=== PATIENT | female | born 1940 | race Hispanic/Latino ===

== ENCOUNTER 2017-09-22 23:12 | Inpatient (IN) | payer MEDICARE, MEDICAID ==
[2017-09-22 23:51] LABS: Hemoglobin 14.7 g/dL (12.0-16.0); Mean Corpuscular HGB CONC 34.4 g/dL (32.0-36.0); Mean Corpuscular Hemoglobin 34.3 pg (27.0-31.0); Mean Corpuscular Volume 99.8 fl (81.0-99.0); RBC Distribution Width 11.1 % (11.5-14.5); Red Blood Cell (RBC) Count 4.29 mill/uL (4.20-5.40); White Blood Cell (WBC) Count 5.1 thou/uL (4.8-10.8)
[2017-09-23 00:09] LABS: ALT (SGPT) 68 U/L (8-55); AST (SGOT) 108 U/L (5-34); Albumin 3.8 g/dL (3.4-4.8); Alkaline Phosphatase 143 U/L (40-150); Anion Gap 11 mmol/L (10-20); BUN (Urea Nitrogen) 14 mg/dL (9.8-20.1); Bilirubin, Total 0.8 mg/dL (0.2-1.2); Calc. Creatinine Clearance 0 mL/min (70-130); Calcium 9.1 mg/dL (7.8-10.44); Carbon Dioxide 24 mmol/L (23-31); Chloride 99 mmol/L (98-107); Estimated GFR-MDRD 63; Globulin 3.5 g/dL (2.4-3.5); Glucose 249 mg/dL (83-110); Protein, Total 7.3 g/dL (6.0-8.3); Sodium 130 mmol/L (136-145)
[2017-09-23 00:13] LABS: Bilirubin Negative (Negative); Blood, Urine Moderate (Negative); Clarity TURBID (Clear); Glucose, Urine (Dipstick) 500 mg/dL (Negative); Leukocyte Large (Negative); Nitrite Negative (Negative); Protein, Urine (Dipstick) 100 mg/dL (Neg-Trace); Specific Gravity, Urine 1.024 (1.002-1.036); pH, Urine 5.5 (5.0-9.0)
[2017-09-23 00:15] LABS: Bacteria/HPF 4+ HPF (None Seen); Hyaline Casts/LPF 0-3 HYALINE CAST LPF (0-3 Hyaline); Pathc Cast-AUWi Flag 0.21 (0-2.49); Squamous Epithelial 0-3 HPF (0-3)
[2017-09-23 00:16] LABS: #Lymphocytes 1.4 thou/uL (1.20-3.40); #Monocytes 0.8 thou/uL (0.11-0.59); #Neutrophils 2.9 thou/uL (1.40-6.50); %Basophils 0.5 % (0.0-1.0); %Eosinophils 0.1 % (0.0-10.0); %Lymphocytes 28.3 % (21.0-51.0); %Monocytes 14.7 % (0.0-10.0); %Neutrophils 56.4 % (42.0-75.0); Mean Platelet Volume 8.7 fL (7.4-10.4); PLT Morphology Comment Appears Decreased; Platelet Count 96 thou/uL (130-400)
[2017-09-23] MEDS ORDERED: MEROPENEM 1 GM/50 ML 1 GM in Premix Bag 1 BAG IVPB SCH (00:45)
[2017-09-23 01:04] LABS: CK (CPK) 128 U/L (29-168); Lipase 54 U/L (8-78)
[2017-09-23] MEDS ORDERED: Oseltamivir 75 MG CAP PO SCH (01:45)
--- NOTE | 2017-09-23 08:01 | RAD ---
PORTABLE CHEST: HISTORY: Cough. Flu-like symptoms. FINDINGS: Heart size appears slightly enlarged. There are sclerotic changes of the aorta. Chronic appearing l jo changes are seen without focal infiltrates. IMPRESSION: Mild cardiomegaly with chronic appearing lung change. POS: [facility]
--- NOTE | 2017-10-29 15:23 | EKG ---
Test Reason : Blood Pressure : / mmHG Vent. Rate : 094 BPM Atrial Rate : 094 BPM P-R Int : 158 ms QRS Dur : 074 ms QT Int : 364 ms P-R-T Axes : 086 034 064 degrees QTc Int : 455 ms Sinus rhythm with Premature atrial complexes Nonspecific T wave abnormality Abnormal ECG Confirmed by THAI JORGENSEN, DAISHA ([id number]), international editorial producer DAV [facility] ([id number]) on 10/29/2017 3:23:11 PM Referred By: Confirmed By:DAISHA ANDRE MD
== END 2017-09-23 12:00 | disposition left against medical advice (07) | DRG 153 ==
LOC: ERS 23:12 → ERHOLD 09-23 00:58
PROVIDERS: ADMIT Internal Medicine; ATTEND Internal Medicine
DX: J11.1 Influenza due to unidentified influenza virus with other respiratory manifestations (principal); E11.9 Type 2 diabetes mellitus without complications; N39.0 Urinary tract infection, site not specified; Z79.4 Long term (current) use of insulin; I10 Essential (primary) hypertension
CPT/HCPCS: 36415; 36416; 71010; 80053; 81003; 81015; 82550; 83605; 83690; 85025; 87040; 87804; 93005; 96365; J1956